=== PATIENT | male | born 1990 | race African-American/Black ===

== ENCOUNTER 2017-09-09 18:58 | Emergency (ER) | payer OTHER ==
[~2017-09-09] VITALS: Ht 170.2 cm; Wt 120.9 kg
[2017-09-09 19:00] VITALS: TEMP 37; Ht 170.2 cm; Wt 120.9 kg
[2017-09-09] MEDS ORDERED: ACETAMINOPHEN 500 MG TAB PO STA (19:13)
[2017-09-09] MEDS ORDERED: IBUPROFEN 600 MG TAB PO STA (19:13)
[2017-09-09] MEDS ORDERED: LISINOPRIL 20 MG TAB PO STA (19:13)
--- NOTE | 2017-09-09 19:14 | EMERGENCY ROOM VISIT NOTE ---
History Report prepared by Nirav: Yoshi Torres Under the Supervision of: Dr. Micha Garcia M.D. First contact with patient: 18:59 Stated Complaint: HEAD PAIN History of Present Illness The patient is a 27 year old black male with a past medical history of hypertension who presents to the ED with a cc of a constant headache beginning earlier today. Positive anxiety, high blood pressure, and tightness in the muscles of his hands and head. Negative drug use and alcohol use. He notes that he smokes cigarettes and chews tobacco. The patient takes Norvasc and lisinopril daily, though he has not taken it today. Source of History: patient Onset: earlier today Position: head Quality: ache Timing: constant Note: Associated symptoms: anxiety, high blood pressure, and tightness in the muscles of his hands and head. Review of Systems See HPI for pertinent positives and negatives. A total of ten systems were reviewed and were otherwise negative. Past Medical & Surgical Medical Problems: (1) HTN (hypertension) Social History Marital Status: single Housing Status: other Occupation Status: unemployed Current/Historical Medications Scheduled Amlodipine (Norvasc), 10 MG PO QAM Lisinopril (Zestril), 20 MG PO QAM Prazosin Hcl (Prazosin), 5 MG PO HS Quetiapine Fumarate (Seroquel), 100 MG PO QPM Quetiapine Fumarate Xr (Seroquel Xr), 200 MG PO HS Allergies Coded Allergies: No Known Allergies (Unverified , 09/09/17) Physical Exam Vital Signs Date Time Temp Pulse Resp B/P (MAP) Pulse Ox O2 Delivery O2 Flow Rate FiO2 09/09/17 20:30 83 18 141/92 99 09/09/17 19:00 37.0 82 18 161/98 97 Room Air Physical Exam GENERAL: Awake, alert, well-appearing, NAD HENT: Normocephalic, atraumatic. EYES: Normal conjunctiva. Sclera non-icteric. NECK: Supple. No nuchal rigidity. FROM. RESPIRATORY: CTAB, no rhonchi, wheezing, crackles CARDIAC: RRR, no MRG ABDOMEN: Soft, NTND, BS+ MSK: No chest wall TTP, no LE edema NEURO: CN 2-12 intact, 5/5 upper and lower extremity strength, no dysmetria, no drift, good finger to nose, no sensory deficits. SKIN: No rash or jaundice noted. Medical Decision & Procedures Laboratory Results 09/09/17 19:26 Red Blood Count 4.28, Mean Corpuscular Volume 95.6, Mean Corpuscular Hemoglobin 33.6, Mean Corpuscular Hemoglobin Concent 35.2, Mean Platelet Volume 9.6, Neutrophils (%) (Auto) 67.0, Lymphocytes (%) (Auto) 19.6, Monocytes (%) (Auto) 7.8, Eosinophils (%) (Auto) 4.7, Basophils (%) (Auto) 0.2, Neutrophils # (Auto) 6.65, Lymphocytes # (Auto) 1.95, Monocytes # (Auto) 0.78, Eosinophils # (Auto) 0.47, Basophils # (Auto) 0.02 09/09/17 19:26 Test 09/09/17 19:26 White Blood Count 9.94 K/uL (4.8-10.8) Red Blood Count 4.28 M/uL (4.7-6.1) Hemoglobin 14.4 g/dL (14.0-18.0) Hematocrit 40.9 % (42-52) Mean Corpuscular Volume 95.6 fL (80-100) Mean Corpuscular Hemoglobin 33.6 pg (25-34) Mean Corpuscular Hemoglobin Concent 35.2 g/dl (32-36) Platelet Count 298 K/uL (130-400) Mean Platelet Volume 9.6 fL (7.4-10.4) Neutrophils (%) (Auto) 67.0 % Lymphocytes (%) (Auto) 19.6 % Monocytes (%) (Auto) 7.8 % Eosinophils (%) (Auto) 4.7 % Basophils (%) (Auto) 0.2 % Neutrophils # (Auto) 6.65 K/uL (1.4-6.5) Lymphocytes # (Auto) 1.95 K/uL (1.2-3.4) Monocytes # (Auto) 0.78 K/uL (0.11-0.59) Eosinophils # (Auto) 0.47 K/uL (0-0.5) Basophils # (Auto) 0.02 K/uL (0-0.2) RDW Standard Deviation 42.3 fL (36.4-46.3) RDW Coefficient of Variation 12.1 % (11.5-14.5) Immature Granulocyte % (Auto) 0.7 % Immature Granulocyte # (Auto) 0.07 K/uL (0.00-0.02) Anion Gap 7.0 mmol/L (3-11) Est Creatinine Clear Calc Drug Dose 155.6 ml/min Estimated GFR () 135.5 Estimated GFR (Non- 116.9 BUN/Creatinine Ratio 12.7 (10-20) Calcium Level 9.3 mg/dl (8.5-10.1) Laboratory results reviewed by me Medications Administered Medications (Trade) Dose Ordered Sig/Chris Route Start Time Stop Time Status Last Admin Dose Admin Acetaminophen (Tylenol Tab) 1,000 mg NOW STAT PO 09/09/17 19:13 09/09/17 19:14 DC 09/09/17 19:35 1,000 MG Ibuprofen (Motrin Tab) 600 mg NOW STAT PO 09/09/17 19:13 09/09/17 19:14 DC 09/09/17 19:35 600 MG Amlodipine Besylate (Norvasc Tab) 10 mg NOW ONCE PO 09/09/17 19:15 09/09/17 19:16 DC 09/09/17 19:36 10 MG Lisinopril (Zestril Tab) 20 mg NOW STAT PO 09/09/17 19:13 09/09/17 19:14 DC 09/09/17 19:36 20 MG ED Course 1858: The patient was evaluated in room C2. A complete history and physical exam was performed. 1955: I reevaluated the patient, and he is feeling better after getting medications. Discussed results and discharge instructions: He verbalized understanding and agreement. The patient is ready for discharge. Medical Decision The patient is a 27 year old black male with a past medical history of hypertension who presents to the ED with a cc of headache beginning earlier today. Triage Nursing notes reviewed. The patient's presentation and history were concerning for etiologies such as migraine headache, meningitis, sinusitis, CO exposure, ICH, SAH, infection, tumor, headache, sinus thrombosis, arterial dissection, renal dysfunction, smoking, poor diet and exercise as well as others were entertained. Patient was seen and evaluated the bedside. Patient was recently discharged from a rehabilitation facility and is making his way to [place] in order to start working. Patient does admit to smoking and chewing tobacco. Patient states that he did not take his morning dose of lisinopril or amlodipine. Patient has a normal neurologic exam and his systolic BP is 160s. I do not believe the patient requires any advanced imaging at this time. Patient has no signs of meningismus and is afebrile. Patient was given his medications. Patient was counseled on diet, exercise, and some smoking/tobacco cessation. Patient was also instructed he may take a tablet and a half of his lisinopril. Patient is agreeable with this plan of care. Patient was informed that his kidney function is normal. Patient's headache resolved. Patient was deemed suitable for outpatient follow-up and treatment. Cautions were answered. Patient was given strict follow-up, discharge, and return precautions. All questions were answered. Patient was deemed suitable for outpatient follow-up at this time. Patient agreed with the plan of care and was safely discharged home. Medication Reconcilliation Current Medication List: was personally reviewed by me Blood Pressure Screening Patient's blood pressure: Elevated blood pressure Blood pressure disposition: Referred to PCP Impression Primary Impression: Head ache Additional Impressions: Encounter for smoking cessation counseling HTN (hypertension) Scribe Attestation The scribe's documentation has been prepared under my direction and personally reviewed by me in its entirety. I confirm that the note above accurately reflects all work, treatment, procedures, and medical decision making performed by me. Departure Information Dispostion Home / Self-Care Forms HOME CARE DOCUMENTATION FORM, IMPORTANT VISIT INFORMATION, WORK / SCHOOL INSTRUCTIONS Patient Instructions ED Smoking Cessation, Exercise 30 Minutes, Hypertension Control, My [facility] Additional Instructions Please return to the emergency department if you have worsening or recurrent symptoms not amenable to at-home treatment. Please call for a follow-up appointment with her primary care physician. Please take your medications as prescribed. If you have other concerns and/or complaints please feel free to also call your primary care physician's office or return the ED for further evaluation, management, and treatment. You may take 30 mg of lisinopril which would be 1.5 x's your current dose of 20 mg. If you do this, please ensure follow up with a PCP. You may take 600 mg Ibuprofen every 6 hours as needed for pain with food for no more than 2 consecutive days. You may take tylenol 1000 mg every 6 hours as needed for pain. You may take motrin and tylenol separately or at the same time. Please consider a healthy diet and exercise as you can tolerated. Please consider tobacco cessation as well. With these three things in place you may improve your blood pressure. Take your medications as prescribed. If taking an antibiotic consider taking a probiotic and/or eating yogurt, but at the least, please take with food as it can cause upset stomach. If culture results are not available at discharge, if they are positive for concern of infection, you will be informed of the results as soon as they are available. If you were seen between 11pm and 7AM all radiology reads will be re-read by our in house staff. If any major discrepancies are discovered, you will be notified. You have been examined and treated today on an emergency basis only. This is not a substitute for, or an effort to provide, complete comprehensive medical care. It is impossible to recognize and treat all injuries or illnesses in a single emergency department visit. It is therefore important that you follow up closely with [facility], your PCP, and/or your specialist(s). Call as soon as possible for an appointment. Thank you for your time and consideration. I look forward to speaking with you again soon. Please don't hesitate to call us if you have any questions. Problem Qualifiers Primary Impression: Head ache Headache type: unspecified Headache chronicity pattern: acute headache Intractability: not intractable Qualified Codes: R51 - Headache Additional Impressions: HTN (hypertension) Hypertension type: unspecified Qualified Codes: I10 - Essential (primary) hypertension
[2017-09-09] MEDS ORDERED: AMLODIPINE BESYLATE 5 MG TAB PO ONE (19:15)
[2017-09-09] MEDS ORDERED: QUET200T2 PO (19:21)
[2017-09-09] MEDS ORDERED: PRAZ5CAP2 PO (19:21)
[2017-09-09] MEDS ORDERED: AMLO-114 PO (19:21)
[2017-09-09] MEDS ORDERED: LISI-725 PO (19:21)
[2017-09-09] MEDS ORDERED: QUET1TAB34 PO (19:21)
[2017-09-09 19:40] LABS: BASO % 0.2 %; BASO ABS # 0.02 K/uL (0-0.2); COMPLETE YES; EOS % 4.7 %; HEMATOCRIT 40.9 % (42-52); IG% 0.7 %; LYMPH % 19.6 %; LYMPH ABS # 1.95 K/uL (1.2-3.4); MEAN CELL VOLUME 95.6 fL (80-100); MEAN CORPUSCULAR HEMOGLOBIN 33.6 pg (25-34); MEAN CORPUSCULAR HGB CONC 35.2 g/dl (32-36); MEAN PLATELET VOLUME 9.6 fL (7.4-10.4); MONO % 7.8 %; PLATELET COUNT 298 K/uL (130-400); RED BLOOD COUNT 4.28 M/uL (4.7-6.1); WHITE BLOOD COUNT 9.94 K/uL (4.8-10.8)
[2017-09-09 19:57] LABS: BUN/CREATININE RATIO 12.7 (10-20); CALCIUM 9.3 mg/dl (8.5-10.1); CREATININE 0.88 mg/dl (0.60-1.40); POTASSIUM 3.5 mmol/L (3.5-5.1)
[2017-09-09 20:30] VITALS: BP 141/92; PULSE 83; O2SAT 99
== END 2017-09-09 20:31 | disposition home or self-care (01) ==
LOC: C.EDC 18:59
DX: R51 Headache (principal); I10 Essential (primary) hypertension; Z71.6 Tobacco abuse counseling; F41.9 Anxiety disorder, unspecified; F17.210 Nicotine dependence, cigarettes, uncomplicated; F17.220 Nicotine dependence, chewing tobacco, uncomplicated; Z79.899 Other long term (current) drug therapy